=== PATIENT | male | born 1970 | race Caucasian/White ===

== ENCOUNTER → 2023-01-09 14:14 | Outpatient (REF) | payer OTHER, SELFPAY ==
--- NOTE | 2023-01-09 14:25 | CA_ITS ---
Transthoracic Echocardiogram Patient (Last, First, Middle): Amandeep Del Rosario, Gender: Male Date of : 1970 Age: 52 Procedure Date: 01/09/2023 Procedure Type: Transthoracic Echocardiogram Location: [place] Height: 170.18 cm Weight: 113.4 kg BSA: 2.22 m2 Heart Rate: 100 bpm BP: 102 / 70 mmHg Investigative Agent: TO Referring MD: Denton Elliott DO Symptoms: R60.0 LOW EXT EDEMA Study Quality: Adequate/Contrast ECG Rhythm: Tachycardia Conclusions: - The left ventricular systolic function is severely decreased. The visually estimated ejection fraction is between 15-20%. - The left atrium is moderately dilated. - There is mild calcification of the aortic valve. - No obvious valvular pathology seen on this study. - Moderate plaque is seen in the sino tubular ridge. Findings Procedure Information Contrast agent, definity, is being given per protocol without apparent complications. Left Ventricle Normal left ventricular cavity size. The left ventricular systolic function is severely decreased. The visually estimated ejection fraction is between 15-20%. There is severe global hypokinesis. Diastolic function is indeterminate on the basis of available data. There is mild septal asymmetric hypertrophy. Right Ventricle Mildly increased right ventricular cavity size. There is normal right ventricular systolic function. Atria The left atrium is moderately dilated. The right atrium is normal in size. Aortic Valve There is a normal trileaflet aortic valve. There is mild calcification of the aortic valve. There is no aortic valve stenosis. There is no aortic valve regurgitation. Mitral Valve The mitral valve appears normal. There is trace mitral valve regurgitation. There is no mitral valve stenosis. Pulmonic Valve The pulmonic valve is likely normal. Tricuspid Valve Normal tricuspid valve structure. There is trace tricuspid valve regurgitation. There is no evidence of pulmonary hypertension. Great Vessels The asc aorta is normal in size. Moderate plaque is seen in the sino tubular ridge. Venous The inferior vena cava is mildly dilated and collapses greater than 50% with inspiration. Pericardium/Pleural There is no evidence of pericardial effusion. Prior Study Comparison No prior study available for comparison. Recommendations, Care & Conclusions No obvious valvular pathology seen on this study. Measurements 2D Linear Measurements IVSd: 1.12 0.6-0.9/0.6-1.0 cm LVIDd: 5.66 3.9-5.3/4.2-5.9 cm LVIDd Index: 2.55 2.4-3.2/2.2-3.1 cm/m2 LVIDs: 4.86 2.0-3.6 cm LVPWd: 0.97 0.7-1.1 cm LA Diam: 3.70 2.7-3.8/3.0-4.0 cm LAIDs Index: 1.67 1.5-2.3 cm/m2 LV Mass: 296.09 67-162/88-224 g LV Mass Index: 133.37 43-95/49-115 g/m2 LVOT Diam: 2.30 3.0+(-)1.3 cm 2D Systolic Function EF 4C: 24.90 >55% EF 2C: 36.60 >55% EF BiP: 32.10 >55% Mitral Valve MV Pk E: 1.05 E'Lateral: 10.80 E'Medial: 5.33 E/E' Med: 19.70 E/E' Lat: 9.70 Aortic Valve AoV Pk Williams: 1.62 AoV Mn Williams: 1.18 AoV VTI: 0.30 AoV Pk Grad: 10.00 Aov Mn Grad: 6.00 JV Cont.VTI: 2.31 LVOT LVOT Pk Williams: 1.02 LVOT Mn Williams: 0.66 LVOT VTI: 0.17 LVOT Pk Grad: 4.00 LVOT Mn Grad: 2.00 LVOT Diam: 2.30 LVOT Area: 4.15 Diastolic Function MV Pk E: 1.05 E'Medial: 5.33 E/E' Med: 19.70 E' Laterial: 10.80 E/E' Lat: 9.70 Right Ventricle TAPSE (mm): 22.00 TVS' Williams: 15.60 Tricuspid Valve RA Press: 8.00 Great Vessels Aorta Sinus of Valsalva: 3.84 2.0-3.5 cm Ao Asc: 3.60 2.1-3.4 cm Updated in Other Vendor System with Status of Final Sher Kapadia MD electronically signed on 01/09/2023 4:05:14 PM with status of Final
== END ==
LOC: HO.CARD 14:14
PROVIDERS: PCP Family Medicine; Visit Provider Family Medicine
DX: R60.0 Localized edema (principal)
CPT/HCPCS: 93306; Q9957

== ENCOUNTER → 2023-01-09 14:25 | Outpatient (BNV) | payer OTHER, SELFPAY | PROVIDERS: PCP Family Medicine; Visit Provider Internal Medicine | DX: I35.8 Other nonrheumatic aortic valve disorders (principal) | CPT/HCPCS: 93306 ==